=== PATIENT | female | born 2000 | race African-American/Black ===

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

== ENCOUNTER 2024-12-09 11:16 | Emergency (ER) | payer OTHER ==
[2024-12-09 11:26] VITALS: BP 110/85; PULSE 57; RESP 20; TEMP 98.2; BMI 29.0
[2024-12-09] MEDS ORDERED: FLUORESCEIN NA 1 EA STRIP ONE (12:40)
[2024-12-09] MEDS ORDERED: TETRACAINE 0.5% OPHTH SOLN 2 ML BOTTLE ONE (12:40)
[2024-12-09] MEDS: TETRACAINE 0.5% HCL 0.6ML DROPPER.BOTTLE OD ONE (12:50)
[2024-12-09] MEDS: FLUORESCEIN NA 1 EA STRIP OD ONE (12:50)
== END 2024-12-09 13:26 | disposition home or self-care (01) ==
LOC: JER 11:16
DX: S05.02XA Injury of conjunctiva and corneal abrasion without foreign body, left eye, initial encounter (principal); X58.XXXA Exposure to other specified factors, initial encounter
CPT/HCPCS: 99283-25